=== PATIENT | male | born 1965 | race Caucasian/White ===

== ENCOUNTER 2016-09-16 10:34 | Emergency (ER) | payer OTHER ==
[~2016-09-16] VITALS: Ht 182.9 cm; Wt 83.9 kg
--- NOTE | 2016-09-16 10:40 | NUR ---
PT CAME IN FOR COUGH, CONGESTION, CHILLS SINCE THURSDAY. NAD NOTED. VSS. SEEN BY MD FOR EVAL. SAFETY AND COMFORT MEASURES PROVIDED. WILL MONITOR.
--- NOTE | 2016-09-16 10:56 | NUR ---
CALLED RT FOR BREATHING TREATMENT
[2016-09-16] MEDS ORDERED: ALBUTEROL FS 2.5 MG/3 ML VIAL.NEB ONE (10:58)
[2016-09-16] MEDS: ALBUTEROL FS 2.5 MG/3 ML VIAL.NEB CONTNEB ONE (11:02)
--- NOTE | 2016-09-16 12:36 | NUR ---
PT. VERBALIZED UNDERSTANDING OF AFTERCARE INSTRUCTIONS.Patient discharged to home in stable condition. Written and verbal after care instructions given. Patient verbalizes understanding of instruction.
[2016-09-16 12:37] VITALS: BP 124/75
== END 2016-09-16 12:37 | disposition home or self-care (01) ==
LOC: ER 10:36
DX: R05 Cough (principal); J45.909 Unspecified asthma, uncomplicated; Z87.891 Personal history of nicotine dependence
CPT/HCPCS: 71010; 94640; 94799; 99283; A4606; Z7610

== ENCOUNTER 2023-05-20 21:46 | Emergency (ER) | payer MEDICAID, OTHER ==
[~2023-05-20] VITALS: Ht 182.9 cm; Wt 90.7 kg
[2023-05-20 22:00] VITALS: BP 128/84; TEMP 98
[2023-05-20] MEDS ORDERED: CEPH500C2 PO (22:16)
[2023-05-20] MEDS ORDERED: TDAP [DIPH/PERTUSSIS/TET] 0.5 ML VIAL IM ONE (22:21)
[2023-05-20 22:23] VITALS: O2SAT 99
[2023-05-20] MEDS: TDAP [DIPH/PERTUSSIS/TET] 0.5 ML VIAL IM ONE (22:25)
== END 2023-05-20 22:31 | disposition home or self-care (01) ==
LOC: ER 21:57
DX: S80.811A Abrasion, right lower leg, initial encounter (principal); F17.200 Nicotine dependence, unspecified, uncomplicated; W54.0XXA Bitten by dog, initial encounter; Y93.89 Activity, other specified; Y92.89 Other specified places as the place of occurrence of the external cause; Y99.8 Other external cause status
CPT/HCPCS: 90715